=== PATIENT | female | born 1940 | race Caucasian/White ===

== ENCOUNTER 2017-03-10 12:32 | Emergency (ER) | payer MEDICARE ==
[2017-03-10 13:33] VITALS: BP 159/59
--- NOTE | 2017-03-10 14:20 | UC ---
Ear Complaint HPI - HPI Summary HPI Summary: This is a 76 yo female with c/o L ear pain that started yesterday. She reports similar sxs with prior cerumen impaction. She has a THR scheduled for Monday and wants to be sure there is nothing that will delay her surgery. She denies cough, congestion, ST, SOB. - History of Current Complaint Chief Complaint: UCEar Stated Complaint: EAR PAIN - Allergies/Home Medications Allergies/Adverse Reactions: Allergies Allergy/AdvReac Type Severity Reaction Status Date / Time Cefadroxil [From Durice] Allergy Dry Eyes Verified 03/10/17 13:34 Home Medications: Home Medications Ibuprofen TAB* [Motrin TAB* 600 MG] 600 mg PO Q8H PRN 03/10/17 [History Confirmed 03/10/17] PMH/Surg Hx/FS Hx/Imm Hx Previously Healthy: Yes - Surgical History Surgical History: Yes Surgery Procedure, Year, and Place: iud removal - Family History Known Family History: Positive: None - Social History Alcohol Use: Rare Substance Use Type: None Smoking Status (MU): Never Smoked Tobacco Review of Systems Constitutional: Negative Skin: Negative Eyes: Negative ENT: Ear Ache Respiratory: Negative Cardiovascular: Negative Gastrointestinal: Negative Genitourinary: Negative Motor: Negative Neurovascular: Negative Musculoskeletal: Negative Neurological: Negative Psychological: Negative All Other Systems Reviewed And Are Negative: Yes Physical Exam Triage Information Reviewed: Yes Appearance: Well-Appearing Vital Signs: Initial Vital Signs Temp 98.6 F 03/10/17 13:28 Pulse 67 03/10/17 13:28 Resp 16 03/10/17 13:28 BP 159/59 03/10/17 13:28 Pulse Ox 100 03/10/17 13:28 Vital Signs Reviewed: Yes ENT: Positive: Pharynx normal, TMs normal, Other: - R EAC impacted with cerumen. Negative: Nasal congestion, Tonsillar swelling Neck: Positive: Supple, Nontender Respiratory: Positive: Chest non-tender. Negative: Crackles, Rhonchi, Wheezing Cardiovascular: Positive: RRR, No Murmur Abdominal Exam: Normal Musculoskeletal: Positive: Strength Intact Neurological: Positive: Alert Psychological: Positive: Normal Response To Family Skin Exam: Normal Skin: Negative: rashes Re-Evaluation - Re-Evaluation First Eval Re-Evaluation Time: 14:30 Change: Improved Comment: R EAC successfully irrigated Ear Complaint Course/Dx - Course Course Of Treatment: This is an otherwise healthy 76 yo female with pending THR who presents with L ear pain. Her symptomatic ear is benign, her R ear shows impacted cerumen which was successfully irrigated - Differential Dx/Diagnosis Differential Diagnosis/HQI/PQRI: Foreign Body, Perforated TM Provider Diagnoses: 1. Cerumen impaction Discharge - Discharge Plan Condition: Stable Disposition: HOME Patient Education Materials: Cerumen Impaction (ED) Referrals: Scott Joshua MD [Primary Care Provider] - If Needed Additional Instructions: Instructions: 1. No further intervention necessary
== END 2017-03-10 14:46 | disposition home or self-care (01) ==
LOC: UCEAST 12:32
DX: H61.22 Impacted cerumen, left ear (principal); Z88.8 Allergy status to other drugs, medicaments and biological substances
CPT/HCPCS: 99212; G0463

== ENCOUNTER 2019-01-28 18:11 | Emergency (ER) | payer MEDICARE ==
--- NOTE | 2019-01-28 18:48 | UC ---
Knee Pain HPI - HPI Summary HPI Summary: 78 yo female with the onset of left leg pain after a day of vigorous hiking up and down stairs and on an uneven trail hx of left hip replacement which is not bothering here has left knee and calf pain has to go up step one at a time - History of Current Complaint Chief Complaint: UCLowerExtremity Stated Complaint: LEFT LEG PAIN Time Seen by Provider: 01/28/19 18:27 Hx Obtained From: Patient Onset/Duration: Gradual Onset, Lasting Days Severity Initially: Mild Severity Currently: Moderate Pain Intensity: 0 - at rest Pain Scale Used: 0-10 Numeric Character: Aching Aggravating Factor(s): Movement, Prolonged Standing, Stairs Alleviating Factor(s): Rest Associated Signs And Symptoms: Positive: Negative Able to Bear Weight: Yes Legs: 1 - pain 2 - pain - Allergies/Home Medications Allergies/Adverse Reactions: Allergies Allergy/AdvReac Type Severity Reaction Status Date / Time cefadroxil [From Durice] Allergy Dry Eyes Verified 01/28/19 18:24 PMH/Surg Hx/FS Hx/Imm Hx Previously Healthy: Yes - Surgical History Surgical History: Yes Surgery Procedure, Year, and Place: -02/2017 LEFT HIP REPLACED - Family History Known Family History: Positive: Hypertension - Social History Alcohol Use: Rare Substance Use Type: None Smoking Status (MU): Never Smoked Tobacco Review of Systems All Other Systems Reviewed And Are Negative: Yes Constitutional: Positive: Negative Skin: Positive: Negative Eyes: Positive: Negative ENT: Positive: Negative Respiratory: Positive: Negative Cardiovascular: Positive: Negative Gastrointestinal: Positive: Negative Genitourinary: Positive: Negative Motor: Positive: Negative Musculoskeletal: Positive: Arthralgia - left knee, Myalgia - left calf Neurological: Positive: Negative Psychological: Positive: Negative Physical Exam Triage Information Reviewed: Yes Appearance: Well-Appearing, No Pain Distress, Well-Nourished Vital Signs: Initial Vital Signs Temp 98.1 F 01/28/19 18:16 Pulse 70 01/28/19 18:16 Resp 16 01/28/19 18:16 BP 201/62 01/28/19 18:16 Pulse Ox 98 01/28/19 18:16 Eye Exam: Normal Eyes: Positive: Conjunctiva Clear ENT: Positive: Hearing grossly normal. Negative: Nasal congestion, Nasal drainage, Tonsillar exudate, Trismus, Muffled voice, Hoarse voice Dental Exam: Normal Neck: Positive: Supple, Nontender, No Lymphadenopathy Respiratory: Positive: Lungs clear, Normal breath sounds, No respiratory distress, No accessory muscle use Cardiovascular: Positive: RRR. Negative: Tachycardia, Bradycardia Musculoskeletal: Positive: ROM Intact, No Edema, Other: - antalgic gait, stable left knee, ? effusion, achilles intact Neurological Exam: Normal Neurological: Positive: Alert, Muscle Tone Normal Psychological Exam: Normal Skin Exam: Normal Diagnostics - Radiology No standard instances Radiology Interpretation Completed By: ED Physician Summary of Radiographic Findings: loss of medial joint space Knee Pain Course/Dx - Differential Dx/Diagnosis Provider Diagnosis: Strain of knee and leg, left, Elevated BP without diagnosis of hypertension Discharge - Sign-Out/Discharge Documenting (check all that apply): Patient Departure All imaging exams completed and their final reports reviewed: No - Discharge Plan Condition: Stable Disposition: HOME Patient Education Materials: Muscle Strain (ED), Knee Sprain (ED) Referrals: Scott Joshua MD [Primary Care Provider] - As Soon As Possible Additional Instructions: rest ice - Billing Disposition and Condition Condition: STABLE Disposition: Home
[2019-01-28 19:18] VITALS: BP 162/72
--- NOTE | 2019-01-30 07:19 | UC ---
- Progress Note Progress Note: RADIOLOGY REPORT REVIEWED. CONFIRMS MILD JOINT SPACE NARROWING BUT NO EVIDENCE OF FRACTURE. NO CHANGE IN MANAGEMENT. Course/Dx - Diagnoses Provider Diagnoses: Strain of knee and leg, left, Elevated BP without diagnosis of hypertension Discharge - Sign-Out/Discharge Documenting (check all that apply): Post-Discharge Follow Up All imaging exams completed and their final reports reviewed: Yes - Discharge Plan Condition: Stable Disposition: HOME Prescriptions: Meloxicam [Mobic] 7.5 mg PO BID PRN #20 tablet PRN Reason: Pain Patient Education Materials: Knee Sprain (ED), Muscle Strain (ED) Referrals: Scott Joshua MD [Primary Care Provider] - As Soon As Possible Additional Instructions: rest ice stop ibuprofen and try mobic - Billing Disposition and Condition Condition: STABLE Disposition: Home
== END 2019-01-28 19:30 | disposition home or self-care (01) ==
LOC: UCEAST 18:11
DX: S86.112A Strain of other muscle(s) and tendon(s) of posterior muscle group at lower leg level, left leg, initial encounter (principal); X50.9XXA Other and unspecified overexertion or strenuous movements or postures, initial encounter; Y93.01 Activity, walking, marching and hiking; Y92.828 Other wilderness area as the place of occurrence of the external cause; Y99.8 Other external cause status
CPT/HCPCS: 99212; G0463

== ENCOUNTER 2019-06-15 10:51 | Emergency (ER) | payer MEDICARE ==
--- NOTE | 2019-06-15 11:13 | ED ---
Palpitations / Dysrhythmia - HPI Summary HPI Summary: 78 year old female with no significant past medical history presents to the emergency department today complaining of palpitations which began at 2100 yesterday evening. She states since then she was felt weird feeling in her chest and she has felt anxious. She denies chest pain, shortness of breath, abdominal pain, diaphoresis, arm pain, jaw pain. She states otherwise she feels well and has no complaints. She denies recent recreational drug use, recent stress, tobacco use, recent alcohol use. She denies fever, chest pain, abdominal pain, pending duration, rash, headache, changes in vision, lightheadedness. - History of Current Complaint Chief Complaint: EDDysrhythmPalp Time Seen by Provider: 06/15/19 11:00 Hx Obtained From: Patient Onset/Duration: Sudden Onset, Lasting Hours Timing: Constant Severity Initially: Mild Severity Currently: Mild Character: Irregular Alleviating: Rest Associated Signs & Symptoms: Negative - Allergy/Home Medications Allergies/Adverse Reactions: Allergies Allergy/AdvReac Type Severity Reaction Status Date / Time cefadroxil [From Duricef] Allergy Dry Eyes Verified 06/15/19 11:10 Home Medications: Home Medications NK [No Home Medications Reported] 06/15/19 [History Confirmed 06/15/19] PMH/Surg Hx/FS Hx/Imm Hx Endocrine/Hematology History: Denies: Hx Diabetes Cardiovascular History: Denies: Hx Hypertension, Hx Pacemaker/ICD Musculoskeletal History: Reports: Hx Osteoporosis - OSTEOPENIA Denies: Hx Rheumatoid Arthritis, Hx Scoliosis Sensory History: Denies: Hx Hearing Aid Neurological History: Denies: Hx Headaches, Other Neuro Impairments/Disorders Psychiatric History: Denies: Hx Panic Disorder - Cancer History Hx Chemotherapy: No Hx Radiation Therapy: No - Surgical History Surgery Procedure, Year, and Place: -02/2017 LEFT HIP REPLACED Infectious Disease History: No Infectious Disease History: Denies: Traveled Outside the [place] in Last 30 Days - Family History Known Family History: Positive: Hypertension - Social History Alcohol Use: Rare Substance Use Type: Reports: None Smoking Status (MU): Never Smoked Tobacco Review of Systems Constitutional: Negative Eyes: Negative ENT: Negative Positive: Palpitations Respiratory: Negative Gastrointestinal: Negative Genitourinary: Negative Musculoskeletal: Negative Skin: Negative Neurological: Negative Psychological: Normal All Other Systems Reviewed And Are Negative: Yes Physical Exam Triage Information Reviewed: Yes Vital Signs On Initial Exam: Initial Vitals Temp Pulse Resp BP Pulse Ox 97.0 F 67 16 159/65 100 06/15/19 10:59 06/15/19 10:59 06/15/19 10:59 06/15/19 10:59 06/15/19 10:59 Vital Signs Reviewed: Yes Appearance: Positive: Well-Appearing, No Pain Distress, Well-Nourished Skin: Positive: Warm, Skin Color Reflects Adequate Perfusion Eyes: Positive: EOMI, MAGDI ENT: Positive: Hearing grossly normal Respiratory/Lung Sounds: Positive: Clear to Auscultation, Breath Sounds Present Cardiovascular: Positive: RRR, S1, S2 Abdomen Description: Positive: Nontender, Soft Bowel Sounds: Positive: Present Musculoskeletal: Positive: Strength/ROM Intact Neurological: Positive: Sensory/Motor Intact, Alert, Oriented to Person Place, Time, Speech Normal Psychiatric: Positive: Normal AVPU Assessment: Alert Procedures - Sedation Patient Received Moderate/Deep Sedation with Procedure: No Diagnostics - Vital Signs Vital Signs Temp Pulse Resp BP Pulse Ox 06/15/19 11:06 73 15 192/95 98 06/15/19 10:59 97.0 F 67 16 159/65 100 - Laboratory Result Diagrams: 06/15/19 11:17 06/15/19 11:17 Lab Statement: Any lab studies that have been ordered have been reviewed, and results considered in the medical decision making process. Course/Dx - Course Course Of Treatment: Patient was evaluated in the emergency department today for feelings of palpitations. The patient was seen and examined and her vitals are stable she is afebrile. Probably upon arrival an EKG was done which showed normal sinus rhythm at a rate of 63 bpm. There is normal axis, PA, QTc interval. There is no ST elevation or ischemic changes. Laboratory results returned showing no evidence of leukocytosis or anemia. There are and no electrolyte abnormalities noted. TSH is WNL. Initial troponin resulted as 0.01. Serial troponin shows 0.02. No evidence of STEMI or NSTEMI. HEART score 3. Pt is considered low risk for MD and there is no evidence of concerning pathology causing her symptoms. She is to follow up with her PCP or cardiology for further evaluation and managment as cardiac origin cannot be ruled out. Pt agrees with this plan. - Diagnoses Differential Diagnosis/HQI/PQRI: Positive: AV Block, Mitral Valve Prolapse, Paroxymal SVT, Pulmonary Embolism Provider Diagnoses: Palpitations Discharge ED - Sign-Out/Discharge Documenting (check all that apply): Patient Departure - Discharge Plan Condition: Stable Disposition: HOME Patient Education Materials: Heart Palpitations (ED) Referrals: Scott Joshua MD [Primary Care Provider] - 2 Days Navarro Kruse MD [Medical Doctor] - Additional Instructions: You were seen in the emergency department today for palpitations. I am unsure what is causing your symptoms however, you are not having a heart attack nor do I see any other serious or concerning pathology at this time. Please follow up with your primary care provider or teasel setter for further evaluation and management of your symptoms as cardiac origin cannot be ruled out. Please return to the emergency department immediately if you develop any new or worsening symptoms. Return to activity as tolerated. - Billing Disposition and Condition Condition: STABLE Disposition: Home
[2019-06-15 11:25] LABS: ABS Eosinophils 0.1 10^3/ul (0-0.6); ABS Lymphocytes 1.5 10^3/ul (1.0-4.8); ABS Monocytes 0.5 10^3/ul (0-0.8); ABS Neutrophils 3.8 10^3/ul (1.5-7.7); Eosinophil % 1.5 %; Hematocrit 42 % (35-47); Hemoglobin 14.2 g/dL (12.0-16.0); Lymphocyte % 25.4 %; Mean Corpuscular HGB Conc 34 g/dL (31-36); Mean Corpuscular Hemoglobin 31 pg (27-31); Mean Corpuscular Volume 92 fL (80-97); Mean Platelet Volume 9.1 fL (7.4-10.4); Nucleated Red Blood Cells % 0.2; Platelet Count 176 10^3/uL (150-450); Red Cell Distribution Width 13 % (10-15); White Blood Count 5.9 10^3/uL (3.5-10.8)
[2019-06-15 11:31] LABS: INR 0.94 (0.82-1.09)
[2019-06-15 11:44] LABS: ALT 18 U/L (7-52); AST 25 U/L (13-39); Albumin/Globulin Ratio 1.7 (1-3); Alkaline Phosphatase 71 U/L (34-104); BUN/Creatinine Ratio 22.8 (8-20); Blood Urea Nitrogen 21 mg/dL (6-24); CO2 Carbon Dioxide 29 mmol/L (22-32); Calcium 9.4 mg/dL (8.6-10.3); Chloride 108 mmol/L (101-111); EGFR African American 71.8 (>60); EGFR Non-African American 59.4 (>60); Globulin 2.4 g/dL (2-4); Glucose 84 mg/dL (70-100); Potassium 4.6 mmol/L (3.5-5.0); Sodium 137 mmol/L (135-145); Total Protein 6.4 g/dL (6.4-8.9); Troponin I 0.01 ng/mL (<0.03)
[2019-06-15 12:38] LABS: TSH (Thyroid Stimulating Horm) 2.09 mcIU/mL (0.34-5.60)
[2019-06-15 15:57] VITALS: BP 150/75
--- OUTSIDE RECORDS SUMMARY | 2019-06-18 15:28 | XMS REPORT | Continuity of Care Document ---
:1940 External Reference #:[id number] Author Name Scott Joshua M.D. (transmitted by agent of provider Katia Lozano ) Address [address] [place] [address] Problems Active Problems Provider Date Benign paroxysmal positional vertigo Scott Joshua M.D. Onset: 04/12/2012 Low back pain Scott Joshua M.D. Onset: 08/08/2013 Pure hypercholesterolemia Scott Joshua M.D. Onset: 08/08/2013 Osteochondropathy Scott Joshua M.D. Onset: 08/08/2013 Disorder of bone Scott Joshua M.D. Onset: 11/20/2015 Basal cell carcinoma of neck Scott Joshua M.D. Onset: 02/27/2017 Osteoarthritis of hip, unspecified Scott Joshua M.D. 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 Caltrate 600+D take one 180tabs Unknown capsule/tablet [id number] by mouth daily Tablets Vitamin D once a day Unknown (Cholecalciferol) 400Unit Chewtabs Tylenol Extra 2 by mouth as Unknown Strength needed 500mg Tablets Vitamin C 1 by mouth every Unknown Capsules day during a cold Immunizations CPT Code Status Date Vaccine Lot # [id number] Given 12/27/2016 Pneumonia Vaccine [id number] Given 11/20/2015 Pneumococcal Conjugate Vaccine 13 Valent For [id number] Intramuscular Use [id number] Given 10/30/2014 Tdap - Tetanus/Diptheria/Acellular Pertussis [id number] Given 12/16/2004 Td (History By Patient) Vital Signs Date Vital Result Comment 05/16/2019 2:46pm Height 62.5 inches 5'2.50" Weight 154.00 lb Heart Rate 63 /min pts machine-67 BP Systolic Sitting 157 mmHg pts machine-149/77 BP Diastolic Sitting 74 mmHg pts machine-149/77 BMI (Body Mass Index) 27.7 kg/m2 04/02/2019 2:26pm Height 62.5 inches 5'2.50" Weight 153.00 lb Heart Rate 66 /min BP Systolic Sitting 165 mmHg BP Diastolic Sitting 74 mmHg BMI (Body Mass Index) 27.5 kg/m2 Results Test Acquired Date Facility Test Result H/L Range Note Lipid Profile 05/01/2019 [facility] Triglycerides 59 mg/dL 1 (Trig/Chol/HDL) [address] [place] [address] [phone] Cholesterol 197 mg/dL 2 HDL Cholesterol 54.6 mg/dL 3 LDL Cholesterol 131 mg/dL 4 Comp Metabolic 05/01/2019 [facility] Sodium 141 mmol/L Normal 135-145 Panel [address] [place] [address] [phone] Potassium 4.1 mmol/L Normal 3.5-5.0 Chloride 106 mmol/L Normal 101-111 Co2 Carbon Dioxide 30 mmol/L Normal 22-32 Anion Gap 5 mmol/L Normal 2-11 Glucose 77 mg/dL Normal 70-100 Blood Urea Nitrogen 23 mg/dL Normal 6-24 Creatinine 0.92 mg/dL Normal 0.51-0.95 BUN/Creatinine Ratio 25.0 High 8-20 Calcium 9.3 mg/dL Normal 8.6-10.3 Total Protein 6.3 g/dL Low 6.4-8.9 Albumin 4.1 g/dL Normal 3.2-5.2 Globulin 2.2 g/dL Normal 2-4 Albumin/Globulin Ratio 1.9 Normal 1-3 Total Bilirubin 0.80 mg/dL Normal 0.2-1.0 Alkaline Phosphatase 69 U/L Normal 34-104 Alt 15 U/L Normal 7-52 Ast 22 U/L Normal 13-39 Egfr Non- 59.4 >60 Egfr 71.8 >60 5 1 Desirable: <150 Borderline High: 150-199 High: 200-499 Very High: >500 2 Desirable: <200 Borderline High: 200-239 High: >239 3 Low: <40 Desirable: 40-60 High: >60 4 Desirable: <100 Near Optimal: 100-129 Borderline High: 130-159 High: 160-189 Very High: >189 5 Because ethnic data is not always readily available, this report includes an eGFR for both -Americans and non- Americans. The National Kidney Disease Education Program (NKDEP) does not endorse the use of the MDRD equation for patients that are not between the ages of 18 and 70, are , have extremes of body size, muscle mass, or nutritional status, or are non- or non-. According to the National Kidney Foundation, irrespective of diagnosis, the stage of the disease is based on the level of kidney function: Stage Description GFR(mL/min/1.73 m(2)) 1 Kidney damage with normal or decreased GFR 90 2 Kidney damage with mild decrease in GFR 60-89 3 Moderate decrease in GFR 30-59 4 Severe decrease in GFR 15-29 5 Kidney failure <15 (or dialysis) Procedures Date Code Description Status 01/26/2018 [id number] Bone Mineral Density Test Completed 01/26/2018 [id number] Mammogram Completed 01/19/2017 [id number] Mammogram Completed 12/16/2015 [id number] Bone Mineral Density Test Completed 12/16/2015 [id number] Mammogram Completed 11/28/2014 [id number] Mammogram Completed 09/05/2013 [id number] Mammogram Completed 08/27/2013 [id number] Bone Mineral Density Test Completed 06/01/2012 [id number] Colonoscopy Completed 05/04/2012 [id number] Bone Mineral Density Test Completed 05/04/2012 [id number] Mammogram Completed Medical Devices Description No Information Available Encounters Description No Information Available Assessments Date Code Description Provider 05/16/2019 R03.0 Elevated blood-pressure reading, without Scott Joshua M.D. diagnosis of hypertension 05/16/2019 E78.00 Pure hypercholesterolemia, unspecified Scott Joshua M.D. 04/02/2019 Z00.00 Encounter for general adult medical Scott Joshua M.D. examination without abnormal findings 04/02/2019 M85.9 Disorder of bone density and structure, Scott Joshua M.D. unspecified 04/02/2019 Z12.31 Encounter for screening mammogram for Scott Joshua M.D. malignant neoplasm of breast 04/02/2019 M16.12 Unilateral primary osteoarthritis, left hip Scott Joshua M.D. 04/02/2019 Z85.828 Personal history of other malignant Scott Joshua M.D. neoplasm of skin 04/02/2019 R03.0 Elevated blood-pressure reading, without Scott Joshua M.D. diagnosis of hypertension Plan of Treatment Future Appointment(s):11/14/2019 3:00 pm - Scott Joshua M.D. at [facility] Internal Medicine - [facility]05/23/2019 9:40 am - Daniel Putnam MD at [facility] Aswktqzziry24/31/2019 - Scott Joshua M.D.R03.0 Elevated blood-pressure reading, without diagnosis of hypertensionComments:Office BP up again, but two home BPs better; pt's machine reading perhaps a bit low. Continue home BP checks until she has a dozen readings and send in for review. Diet, exercise, salt avoidance, andweight loss all advised. Pt declined a flu shot todayFollow up:6 months or prn after home BPs [id number] Pure hypercholesterolemia, unspecifiedComments:Cholesterol 191, LDL 134. Cardiac risk score over 20% with today's BP, but just under with her homeBP from today. Discussed risk scoring and option to start drug Rx. Pt elects to continue diet Rx Functional Status Description No Information Available Mental Status Description No Information Available Referrals Description No Information Available
== END 2019-06-15 15:34 | disposition home or self-care (01) ==
LOC: ED 10:51
DX: R00.2 Palpitations (principal); Z88.1 Allergy status to other antibiotic agents; Z96.642 Presence of left artificial hip joint
CPT/HCPCS: 36415; 80053; 83735; 84443; 84484; 85025; 85610; 93005; 99283